=== PATIENT | female | born 1995 | race Caucasian/White ===

== ENCOUNTER 2022-04-07 00:40 | Inpatient (IN) | payer OTHER ==
[~2022-04-07] VITALS: Ht 165.1 cm; Wt 62.1 kg
[2022-04-07] MEDS ORDERED: METHYLPREDNISOLONE SOD SUCC 125 MG/2 ML VIAL IV STA (00:44)
[2022-04-07] MEDS ORDERED: IPRATROPIUM BROMIDE (0.02%) 0.5MG/2.5ML NEB HHN STA ×2 (00:44→01:47)
[2022-04-07] MEDS ORDERED: ALBUTEROL (0.083%) 2.5MG/3ML NEB HHN STA ×2 (00:44→01:47)
[2022-04-07] MEDS ORDERED: MAGNESIUM 2 G PREMIX 50 ML IV STA (00:46)
[2022-04-07] MEDS ORDERED: TERBUTALINE SULFATE 1MG/ML VIAL SUBCUT STA (01:04)
[2022-04-07] MEDS ORDERED: KETAMINE HCL 50 MG/ML 10ML IV ONE ×2 (01:15)
[2022-04-07] MEDS ORDERED: ENOXAPARIN 60MG/0.6ML SYR SUBCUT ONE (01:15)
[2022-04-07] MEDS ORDERED: LORAZEPAM 2MG/ML CPJ IV ONE ×2 (01:15→01:30)
[2022-04-07 01:24] LABS: HEMATOCRIT. 43.3 % (36.0-48.0); HEMOGLOBIN. 14.8 g/dL (12.0-16.0); MEAN CORPUSCULAR HEMOGLOBIN 31.8 pg (28.0-32.0); MEAN CORPUSCULAR VOLUME 93.5 fL (81.0-99.0); MEAN PLATELET VOLUME 9.2 fl (7.4-10.4); PLATELET 334 x1000/uL (130-400); RED BLOOD CELL COUNT 4.64 mill/uL (4.2-5.4); RED CELL DISTRIBUTION WIDTH 12.7 % (11.6-14.6)
[2022-04-07 01:36] LABS: CHLORIDE 112 mEq/L (98-107)
[2022-04-07 01:38] LABS: HCG SCREEN NEGATIVE
[2022-04-07 01:42] LABS: ETHANOL BLOOD < 10 mg/dL
[2022-04-07 01:59] LABS: INR 0.9; PROTHROMBIN TIME 9.9 sec (9.6-11.0)
[2022-04-07 02:14] LABS: PLATELET ESTIMATE NORMAL
[2022-04-07] MEDS ORDERED: LEVOFLOXACIN 750MG PREMIX 150 ML IV ONE (03:15)
[2022-04-07] MEDS ORDERED: SODIUM CHLORIDE 0.9% 1,000 ML IV ONE (03:15)
[2022-04-07] MEDS ORDERED: AZTREONAM 2 GM in DEXT 5% WATER 100 ML IV ONE (03:15)
[2022-04-07 03:27] LABS: CLARITY URINE CLEAR (CLEAR); COLOR URINE YELLOW (YELLOW); KETONES URINE NEGATIVE (NEGATIVE); LEUKOCYTE ESTERASE URINE NEGATIVE (NEGATIVE); NITRITE URINE NEGATIVE (NEGATIVE); OCCULT BLOOD URINE NEGATIVE (NEGATIVE); PH URINE 5.5 (4.5-8.0); PROTEIN URINE 1+ (NEGATIVE); SPECIFIC GRAVITY URINE 1.035 (1.005-1.030); UROBILINOGEN URINE 0.2 E.U./dL (0.2-1.0)
[2022-04-07 03:59] LABS: *AMPHETAMINES SCREEN URINE NEGATIVE (NEGATIVE); *BARBITURATES SCREEN URINE NEGATIVE (NEGATIVE); *BENZODIAZEPINES SCREEN URINE NEGATIVE (NEGATIVE); CANNABINOID URINE SCREEN NEGATIVE (NEGATIVE); METHADONE URINE SCREEN NEGATIVE (NEGATIVE); OPIATES URINE SCREEN NEGATIVE (NEGATIVE); PHENCYCLIDINE URINE SCREEN NEGATIVE (NEGATIVE)
[2022-04-07 05:36] LABS: BG FRACTION INSPIRED OXYGEN 100; BG HCO3 ACT 17.4 mmol/L (22.0-26.0); BG METHEMOGLOBIN 0.5 % (0.0-1.5); BG OXYHEMOGLOBIN 99.5 % (94.0-97.0); BG PCO2 35.5 mmHg (35.0-45.0); BG PH 7.308 (7.350-7.450); BG PO2 546.9 mmHg (75.0-100.0); BG SAMPLE SITE RIGHT RADIAL; BG TOTAL HEMOGLOBIN 14.1 g/dL (12.0-18.0); BG VENT MODE MASK - BIPAP
[2022-04-07] MEDS ORDERED: LORAZEPAM 2MG/ML CPJ IV NR ×2 (08:30→10:00)
[2022-04-07] MEDS ORDERED: DIPHENHYDRAMINE 50MG/ML VIAL IV PRN (09:45)
[2022-04-07] MEDS ORDERED: ACETAMINOPHEN 325MG TABLET PO PRN (09:45)
[2022-04-07] MEDS ORDERED: ONDANSETRON HCL 4MG/2ML INJ IV PRN (09:45)
[2022-04-07] MEDS ORDERED: CLONIDINE 0.1MG TABLET PO PRN (09:45)
[2022-04-07] MEDS ORDERED: METHYLPREDNISOLONE SOD SUCC 125 MG/2 ML VIAL IV NR (10:00)
[2022-04-07] MEDS ORDERED: DEXTROSE 50% WATER 50ML SYRINGE IV PRN (10:30)
[2022-04-07] MEDS: IPRATROPIUM/ALBUTEROL 0.5-3(2.5)MG/3ML NEB HHN SCH ×3 (11:56→19:00)
[2022-04-07 12:29] LABS: *COCAINE SCREEN URINE PRESUMTIVE POSITIVE (NEGATIVE)
[2022-04-07] MEDS: BLOOD SUGAR DIAGNOSTIC STRIP TEST SCH ×2 (14:18→21:00)
[2022-04-07] MEDS: INSULIN LISPRO 100 UNITS/ML SUBCUT SCH ×3 (14:33→21:06)
[2022-04-07] MEDS: METHYLPREDNISOLONE SOD SUCC 40 MG/ML VIAL IV SCH ×2 (14:34→21:05)
[2022-04-07 20:00] VITALS: BP 153/96
[2022-04-07 20:18] VITALS: BP 153/96
[2022-04-07] MEDS: LORAZEPAM 0.5MG TABLET PO PRN (21:05)
[2022-04-07] MEDS: MONTELUKAST SODIUM 10MG TABLET PO SCH (21:05)
[2022-04-07] MEDS: IPRATROPIUM/ALBUTEROL 0.5-3(2.5)MG/3ML NEB HHN PRN (21:48)
[2022-04-07 22:00] VITALS: BP 137/81
[2022-04-08] VITALS (11 sets, daily range): BP systolic 106–145; BP diastolic 47–116
[2022-04-08] MEDS: IPRATROPIUM/ALBUTEROL 0.5-3(2.5)MG/3ML NEB HHN SCH ×6 (00:30→20:18)
[2022-04-08] MEDS: METHYLPREDNISOLONE SOD SUCC 40 MG/ML VIAL IV SCH ×3 (05:23→21:00)
[2022-04-08 06:00] LABS: CHLORIDE 109 mEq/L (98-107)
[2022-04-08 06:22] LABS: HEMATOCRIT. 40.3 % (36.0-48.0); HEMOGLOBIN. 13.6 g/dL (12.0-16.0); MEAN CORPUSCULAR HEMOGLOBIN 31.5 pg (28.0-32.0); MEAN CORPUSCULAR VOLUME 93.8 fL (81.0-99.0); MEAN PLATELET VOLUME 9.8 fl (7.4-10.4); PLATELET 266 x1000/uL (130-400)
[2022-04-08] MEDS: BLOOD SUGAR DIAGNOSTIC STRIP TEST SCH ×4 (08:08→20:20)
[2022-04-08] MEDS: LORATADINE 10MG TABLET PO SCH (08:39)
[2022-04-08] MEDS: INSULIN LISPRO 100 UNITS/ML SUBCUT SCH ×4 (08:43→21:00)
[2022-04-08 10:28] LABS: PLATELET ESTIMATE NORMAL
[2022-04-08] MEDS: IPRATROPIUM/ALBUTEROL 0.5-3(2.5)MG/3ML NEB HHN PRN ×3 (11:01→18:16)
[2022-04-08] MEDS: LORAZEPAM 0.5MG TABLET PO PRN ×2 (13:37→22:30)
[2022-04-08] MEDS: GUAIFENESIN 200MG TABLET PO PRN ×2 (17:30→22:30)
[2022-04-08] MEDS: MONTELUKAST SODIUM 10MG TABLET PO SCH (17:30)
[2022-04-09] VITALS (12 sets, daily range): BP systolic 107–142; BP diastolic 60–92
[2022-04-09] MEDS: IPRATROPIUM/ALBUTEROL 0.5-3(2.5)MG/3ML NEB HHN SCH ×5 (00:24→20:03)
[2022-04-09] MEDS: IPRATROPIUM/ALBUTEROL 0.5-3(2.5)MG/3ML NEB HHN PRN ×5 (01:37→23:08)
[2022-04-09] MEDS: METHYLPREDNISOLONE SOD SUCC 40 MG/ML VIAL IV SCH ×3 (05:42→21:00)
[2022-04-09] MEDS: GUAIFENESIN 200MG TABLET PO PRN (06:10)
[2022-04-09] MEDS: INSULIN LISPRO 100 UNITS/ML SUBCUT SCH ×4 (08:00→21:01)
[2022-04-09] MEDS: LORATADINE 10MG TABLET PO SCH (08:08)
[2022-04-09] MEDS: BLOOD SUGAR DIAGNOSTIC STRIP TEST SCH ×4 (08:08→21:00)
[2022-04-09] MEDS: MONTELUKAST SODIUM 10MG TABLET PO SCH (17:23)
[2022-04-10] VITALS (12 sets, daily range): BP systolic 107–152; BP diastolic 67–97
[2022-04-10] MEDS: IPRATROPIUM/ALBUTEROL 0.5-3(2.5)MG/3ML NEB HHN SCH ×4 (01:33→20:52)
[2022-04-10] MEDS: LORAZEPAM 0.5MG TABLET PO PRN ×2 (05:46→18:05)
[2022-04-10] MEDS: IPRATROPIUM/ALBUTEROL 0.5-3(2.5)MG/3ML NEB HHN PRN ×2 (05:54→14:55)
[2022-04-10] MEDS: INSULIN LISPRO 100 UNITS/ML SUBCUT SCH ×4 (08:00→21:00)
[2022-04-10] MEDS: BLOOD SUGAR DIAGNOSTIC STRIP TEST SCH ×4 (08:26→21:24)
[2022-04-10] MEDS: LORATADINE 10MG TABLET PO SCH (09:41)
[2022-04-10] MEDS: METHYLPREDNISOLONE SOD SUCC 40 MG/ML VIAL IV SCH ×2 (09:41→21:43)
[2022-04-10] MEDS ORDERED: BENZONATATE 100MG CAPSULE PO PRN (12:00)
[2022-04-10] MEDS: GUAIFENESIN 600MG ER TABLET PO SCH ×3 (13:30→21:25)
[2022-04-10] MEDS: FAMOTIDINE 20MG/2ML VIAL IV SCH ×2 (13:30→21:21)
[2022-04-10] MEDS: MONTELUKAST SODIUM 10MG TABLET PO SCH (16:59)
[2022-04-11] VITALS (12 sets, daily range): BP systolic 101–153; BP diastolic 54–106
[2022-04-11] MEDS: IPRATROPIUM/ALBUTEROL 0.5-3(2.5)MG/3ML NEB HHN SCH ×7 (00:46→23:46)
[2022-04-11] MEDS: METHYLPREDNISOLONE SOD SUCC 40 MG/ML VIAL IV SCH (06:43)
[2022-04-11] MEDS: BLOOD SUGAR DIAGNOSTIC STRIP TEST SCH ×4 (07:30→20:43)
[2022-04-11] MEDS: INSULIN LISPRO 100 UNITS/ML SUBCUT SCH ×4 (08:00→20:44)
[2022-04-11] MEDS: FAMOTIDINE 20MG/2ML VIAL IV SCH (08:49)
[2022-04-11] MEDS: LORATADINE 10MG TABLET PO SCH (08:49)
[2022-04-11 16:47] LABS: HEMATOCRIT. 42.2 % (36.0-48.0); HEMOGLOBIN. 13.9 g/dL (12.0-16.0); MEAN PLATELET VOLUME 9.3 fl (7.4-10.4); PLATELET 286 x1000/uL (130-400); RED BLOOD CELL COUNT 4.49 mill/uL (4.2-5.4)
[2022-04-11 17:07] LABS: CHLORIDE 106 mEq/L (98-107)
[2022-04-11 17:57] LABS: PLATELET ESTIMATE NORMAL
[2022-04-11] MEDS: MONTELUKAST SODIUM 10MG TABLET PO SCH (17:58)
[2022-04-11] MEDS: METHYLPREDNISOLONE SOD SUCC 125 MG/2 ML VIAL IV SCH (17:58)
[2022-04-11] MEDS: GUAIFENESIN 600MG ER TABLET PO SCH (20:41)
[2022-04-11] MEDS: FAMOTIDINE 20MG TABLET PO SCH (20:41)
[2022-04-12] VITALS (10 sets, daily range): BP systolic 121–142; BP diastolic 48–102
[2022-04-12] MEDS: METHYLPREDNISOLONE SOD SUCC 125 MG/2 ML VIAL IV SCH ×4 (00:23→17:10)
[2022-04-12] MEDS: IPRATROPIUM/ALBUTEROL 0.5-3(2.5)MG/3ML NEB HHN PRN (03:50)
[2022-04-12] MEDS: LORAZEPAM 0.5MG TABLET PO PRN ×2 (05:51→20:52)
[2022-04-12] MEDS: BLOOD SUGAR DIAGNOSTIC STRIP TEST SCH ×4 (07:30→21:02)
[2022-04-12] MEDS: INSULIN LISPRO 100 UNITS/ML SUBCUT SCH ×4 (08:00→21:00)
[2022-04-12] MEDS: IPRATROPIUM/ALBUTEROL 0.5-3(2.5)MG/3ML NEB HHN SCH ×4 (08:12→20:24)
[2022-04-12] MEDS: LORATADINE 10MG TABLET PO SCH (09:54)
[2022-04-12] MEDS: GUAIFENESIN 600MG ER TABLET PO SCH ×2 (09:54→20:52)
[2022-04-12] MEDS: FAMOTIDINE 20MG TABLET PO SCH ×2 (09:54→20:52)
[2022-04-12] MEDS: MONTELUKAST SODIUM 10MG TABLET PO SCH (17:10)
[2022-04-13] VITALS (7 sets, daily range): BP systolic 109–152; BP diastolic 64–95
[2022-04-13] MEDS: METHYLPREDNISOLONE SOD SUCC 125 MG/2 ML VIAL IV SCH ×3 (00:48→14:16)
[2022-04-13] MEDS: BLOOD SUGAR DIAGNOSTIC STRIP TEST SCH ×2 (06:35→12:30)
[2022-04-13] MEDS: INSULIN LISPRO 100 UNITS/ML SUBCUT SCH ×2 (07:08→13:00)
[2022-04-13] MEDS ORDERED: LORAZEPAM 0.5MG TABLET PO PRN (08:00)
[2022-04-13] MEDS: IPRATROPIUM/ALBUTEROL 0.5-3(2.5)MG/3ML NEB HHN PRN ×2 (08:56→12:39)
[2022-04-13] MEDS: FAMOTIDINE 20MG TABLET PO SCH (08:59)
[2022-04-13] MEDS: LORATADINE 10MG TABLET PO SCH (08:59)
[2022-04-13] MEDS: GUAIFENESIN 600MG ER TABLET PO SCH (08:59)
[2022-04-13] MEDS ORDERED: MOME13HF INH ×2 (10:19)
[2022-04-13] MEDS ORDERED: GUAI600T44 MT (10:19)
[2022-04-13] MEDS ORDERED: IPRA3AMP9 HHN (10:19)
[2022-04-13] MEDS ORDERED: P20 MT (10:19)
[2022-04-13] MEDS ORDERED: LORA10TA7 MT (10:19)
[2022-04-13] MEDS ORDERED: FAMO20TA8 MT (10:19)
[2022-04-13] MEDS ORDERED: ALBU18HF2 IH (10:19)
[2022-04-13] MEDS ORDERED: MONT10TA21 MT (10:19)
[2022-04-13] MEDS ORDERED: BENZ-16 MT (10:19)
[2022-04-13] MEDS ORDERED: FLUT1AER7 INH (12:46)
== END 2022-04-13 17:48 | disposition home or self-care (01) | DRG 917 ==
LOC: ER 00:40 → 5EST 03:19 → EDBEDREQ 04:00 → ENRESERV 16:15
PROVIDERS: ADMIT Internal Medicine; ATTEND Internal Medicine
PROC: 5A09457 Assistance with Respiratory Ventilation, 24-96 Consecutive Hours, Continuous Positive Airway Pressure (ICD-10-PCS; principal; 2022-04-07)
PROC: 5A09357 Assistance with Respiratory Ventilation, Less than 24 Consecutive Hours, Continuous Positive Airway Pressure (ICD-10-PCS; 2022-04-09)
PROC: 5A09457 Assistance with Respiratory Ventilation, 24-96 Consecutive Hours, Continuous Positive Airway Pressure (ICD-10-PCS; 2022-04-10)
DX: T40.5X1A Poisoning by cocaine, accidental (unintentional), initial encounter (principal); J96.01 Acute respiratory failure with hypoxia; J68.0 Bronchitis and pneumonitis due to chemicals, gases, fumes and vapors; J45.902 Unspecified asthma with status asthmaticus; E87.2 Acidosis; Y92.89 Other specified places as the place of occurrence of the external cause; D72.10 Eosinophilia, unspecified; Z20.822 Contact with and (suspected) exposure to COVID-19; F14.90 Cocaine use, unspecified, uncomplicated; E11.65 Type 2 diabetes mellitus with hyperglycemia; R80.9 Proteinuria, unspecified; Z28.310 Unvaccinated for COVID-19; Z88.0 Allergy status to penicillin; Z79.899 Other long term (current) drug therapy; Z79.51 Long term (current) use of inhaled steroids
CPT/HCPCS: 36415; 36600; 71045; 71275; 80048; 80053; 80305; 80320; 81003; 82375; 82805; 82962; 83605; 84145; 84484; 84703; 85025; 87426; 87804; 93005; 93970; 94640; 94644; 94660; 99285; C9803; J1200; J1815; J1956; J2060; J2920; J2930; J3105; J3475; J3490; J7030; J7060; G0480